=== PATIENT | male | born 1995 | race Caucasian/White ===

== ENCOUNTER 2016-04-29 14:14 | Emergency (ER) | payer OTHER ==
[~2016-04-29] VITALS: Ht 190.5 cm; Wt 73.3 kg
[2016-04-29 14:22] VITALS: TEMP 36.9; Ht 190.5 cm; Wt 73.3 kg
--- NOTE | 2016-04-29 14:40 | EMERGENCY ROOM VISIT NOTE ---
ED Visit Note First contact with patient: 14:29 CHIEF COMPLAINT: Foot pain HISTORY OF PRESENT ILLNESS: This 20-year-old male patient presents to the emergency department ambulatory complaining of swelling and pain in the right foot at rest and worse with weight bearing. The patient states that he was walking on a ledge 2 days ago and twisted his right foot over a stump. The patient rates the pain as sharp and and 8/10. The patient has not taken any medication for relief of the pain. The patient is able to walk, but states it is very painful to do so. No numbness or weakness. No ankle pain. There are no lacerations of the foot. The patient is able to move all of their toes and their ankle. No previous fracture to this foot. REVIEW OF SYSTEMS: GENERAL: A 6 system review of systems was completed with positives and pertinent negatives in the HPI. ALLERGIES: No known drug allergies MEDICATIONS: No chronic medications PMH: No significant past medical history. SOCIAL HISTORY: The patient is a [place] [employer] student and lives with roommates. Nonsmoker, does admit to occasional alcohol use. PHYSICAL EXAM: Vital Signs: Reviewed Nurse's notes, vital signs stable. GENERAL : This is a 20-year-old male, in no acute distress, but appears in pain, well- developed, well-nourished. Musculoskeletal: There is no visual deformity of the right foot. There is no erythema. There is ecchymosis over the area of the fifth metatarsal. There is tenderness and swelling over the lateral aspect of the right foot. There is no tenderness over the lateral or medial malleolus. No tenderness of the tib/fib. Full range of motion of the ankle. Full plantar flexion and dorsiflexion. Strength 5/5. The skin is intact and there are no lacerations or puncture wounds. Dorsalis pedis pulse 2+. Capillary refill less than 2 seconds. RADIOGRAPHIC FINDINGS: RIGHT FOOT MIN 3 VIEWS ROUTINE CLINICAL HISTORY: Right foot injury, ecchymosis 5th metatarsal. COMPARISON: None FINDINGS: There is a comminuted nondisplaced transverse fracture within the base of the right fifth metatarsal with suspected intra-articular extension. Alignment of the tarsometatarsal joints is anatomic. No additional fractures are identified on this examination. Lateral view demonstrates a 4 mm ossific density along the dorsal aspects of the proximal metatarsals appear IMPRESSION: 1. Acute comminuted, nondisplaced transverse fracture of the base of the right fifth metatarsal with suspected intra-articular extension. 2. 4 mm bone fragment along the dorsal aspect of the proximal metatarsals shown on lateral projection. This represents an age indeterminate, but likely old, avulsion injury. EMERGENCY DEPARTMENT COURSE: I examined the patient. An X-ray of the right foot was reviewed by myself and radiology and reveals the above fracture. The patient was placed in an Ortho-Glass posterior short leg splint and instructed on the use of crutches. The patient was given information for orthopedic follow -up. He was given a short course of Costilla for pain. The patient was discharged home in good condition. DIAGNOSIS: Fifth metatarsal fracture Current/Historical Medications Scheduled PRN Hydrocodone/Acetaminophen 5MG/325MG (Costilla 5MG/325MG), 1-2 TABLET PO Q4H PRN for Pain Ibuprofen Tab (Advil), 200 MG PO Q6 PRN for Pain Allergies Coded Allergies: No Known Allergies (Unverified , 04/29/16) Vital Signs Date Time Temp Pulse Resp B/P Pulse Ox O2 Delivery O2 Flow Rate FiO2 04/29/16 15:55 68 18 120/81 97 04/29/16 14:22 36.9 84 18 122/74 94 Room Air Departure Information Impression Primary Impression: Fracture of fifth metatarsal bone Dispostion Home / Self-Care Condition GOOD Prescriptions Hydrocodone/Acetaminophen 5MG/325MG (Costilla 5MG/325MG) Tab 1-2 TABLET PO Q4H Y for Pain, #12 TAB For Initial Treatment Prov: Erinn Ventura, DEBBY 04/29/16 Referrals No Doctor, Assigned (PCP) Vitaliy Hogue MD Patient Instructions ED Splint Care [facility]min [facility] Additional Instructions You have been treated in the Emergency Department for a foot fracture. You have been prescribed Costilla to be used for pain control. This is a narcotic medication. You cannot drive or consume alcohol while on this medicine. This medicine should only be used for pain that cannot be controlled with over-the- counter pain medicines. For pain control, you can use the following [id number] medicines (if >12 yo): - Regular strength (325mg/tab) Tylenol (acetaminophen) 2 tabs every 4-6 hours as needed. Do not exceed 12 tablets in a 24 hour period. Avoid taking more than 4 grams (4000 mg) of Tylenol per day. This includes any other sources of acetaminophen you may take on a regular basis. - Regular strength (200 mg/tab) Advil (ibuprofen) 1-2 tabs every 4-6 hours as needed. Do not exceed a dose of 3200 mg per day. If this is a recent injury (<24 hrs), ice can be applied to the area of pain for the first 3 days to help decrease pain and inflammation. You have been provided the number for an Orthopaedic Surgeon. You should call this number as soon as possible to establish a follow-up visit from today's Emergency Department visit. Keep the splint in place and use the crutches you have been provided to keep ALL weight off of the ankle until cleared by orthopedics. Return to the Emergency Department if your current symptoms worsen despite treatment course outlined above, or if you develop any of the following symptoms : intractable pain despite aforementioned treatment course or new onset of numbness or tingling of the foot. Problem Qualifiers Primary Impression: Fracture of fifth metatarsal bone Encounter type: initial encounter Fracture type: closed Fracture alignment : nondisplaced Laterality: right Qualified Codes: S92.354A - Nondisplaced fracture of fifth metatarsal bone, right foot, initial encounter for closed fracture
[2016-04-29] MEDS ORDERED: IBUP-103 PO (15:03)
--- NOTE | 2016-04-29 15:15 | DIAGNOSTIC IMAGING REPORT ---
RIGHT FOOT MIN 3 VIEWS ROUTINE CLINICAL HISTORY: Right foot injury, ecchymosis 5th metatarsal. COMPARISON: None FINDINGS: There is a comminuted nondisplaced transverse fracture within the base of the right fifth metatarsal with suspected intra-articular extension. Alignment of the tarsometatarsal joints is anatomic. No additional fractures are identified on this examination. Lateral view demonstrates a 4 mm ossific density along the dorsal aspects of the proximal metatarsals appear IMPRESSION: 1. Acute comminuted, nondisplaced transverse fracture of the base of the right fifth metatarsal with suspected intra-articular extension. 2. 4 mm bone fragment along the dorsal aspect of the proximal metatarsals shown on lateral projection. This represents an age indeterminate, but likely old, avulsion injury. Electronically signed by: Alex Roman M.D. 04/29/2016 3:14 PM Dictated Date/Time: 04/29/2016 3:10 PM
[2016-04-29] MEDS ORDERED: HYDR-5688 PO (15:31)
[2016-04-29 15:55] VITALS: BP 120/81; PULSE 68; O2SAT 97
== END 2016-04-29 15:56 | disposition home or self-care (01) ==
LOC: C.EDB 14:15 → C.EDD 15:56
DX: S92.354A Nondisplaced fracture of fifth metatarsal bone, right foot, initial encounter for closed fracture (principal); X50.1XXA Overexertion from prolonged static or awkward postures, initial encounter

== ENCOUNTER 2016-06-26 04:38 | Emergency (ER) | payer OTHER ==
[~2016-06-26] VITALS: Ht 190.5 cm; Wt 73.3 kg
[~2016-06-26 04:38] MED LIST: HYDR-5688 PO; IBUP-103 PO
[2016-06-26 04:43] VITALS: Ht 190.5 cm; Wt 73.3 kg
[2016-06-26] MEDS ORDERED: SODIUM CHLORIDE 0.9% 1000ML 1,000 ML, SODIUM CHLORIDE 0.9% 1000ML 1,000 ML IV ONE (05:00)
[2016-06-26] MEDS ORDERED: ONDANSETRON INJ 2 MG/ML 2 ML VIAL IV STA ×2 (05:02→06:19)
[2016-06-26 05:11] LABS: BASO % 0.1 %; BASO ABS # 0.02 K/uL (0-0.2); COMPLETE YES; EOS % 0.1 %; HEMATOCRIT 45.6 % (42-52); IG% 0.3 %; LYMPH % 2.3 %; LYMPH ABS # 0.31 K/uL (1.2-3.4); MEAN CELL VOLUME 89.2 fL (80-100); MEAN CORPUSCULAR HEMOGLOBIN 31.7 pg (25-34); MEAN CORPUSCULAR HGB CONC 35.5 g/dl (32-36); MEAN PLATELET VOLUME 9.2 fL (7.4-10.4); MONO % 5.9 %; NEUT % 91.3 %; PLATELET COUNT 269 K/uL (130-400); RED BLOOD COUNT 5.11 M/uL (4.7-6.1); WHITE BLOOD COUNT 13.65 K/uL (4.8-10.8)
[2016-06-26 05:25] LABS: URINE APPEARANCE CLEAR (CLEAR); URINE BILIRUBIN NEG (NEG); URINE COLOR DK YELLOW; URINE NITRITE NEG (NEG); URINE PH >= 9.0 (4.5-7.5); UROBILINOGEN NEG (NEG); ZZUR CULT IF INDIC CLEAN CATCH NO
[2016-06-26 05:26] LABS: BUN/CREATININE RATIO 14.2 (10-20); CALCIUM 9.3 mg/dl (8.5-10.1); CREATININE 1.1 mg/dl (0.60-1.40); POTASSIUM 4.4 mmol/L (3.5-5.1)
[2016-06-26 05:29] LABS: ALB/GLOB RATIO 1.3 (0.9-2)
[2016-06-26 05:35] LABS: MANUAL MICROSCOPIC REQUIRED? NO; REVIEW REQ? NO
[2016-06-26 05:55] LABS: SULFASALICYLIC ACID NEG (NEG)
[2016-06-26] MEDS ORDERED: ONDA4TAB10 SL (06:48)
[2016-06-26 08:15] VITALS: BP 98/53; PULSE 90; TEMP 37; O2SAT 100
--- NOTE | 2016-06-26 22:29 | EMERGENCY ROOM VISIT NOTE ---
History First contact with patient: 04:51 Chief Complaint: VOMITING Stated Complaint: FOOD POISING?,VOMITING,DEHYDRATION Nursing Triage Summary: n/v/d since 2030 last evening. Pt stated he is unable to keep anything down including water. History of Present Illness The patient is a 20 year old male who presents to the Emergency Room with complaints of nausea, vomiting, and diarrhea for the past 6 hours. The patient states that he was feeling well throughout the day and was eating and drinking as normal. When he got home he began with his symptoms. He does not have recent travel history or recent antibiotic use. No known exposure to disease. The patient feels dehydrated and states that he may have food poisoning. He has some abdominal cramping but no distinct pain. No chest pain or shortness of breath. He rates his discomfort a 7/10. Review of Systems More than 10 systems were reviewed and otherwise negative with the exception of history of present illness. Past Medical/Surgical History No chronic medical disease Family History No pertinent family history Social History Smoking Status: Never Smoker Alcohol Use: occasionally Drug Use: none Marital Status: single Housing Status: lives with roommate Occupation Status: [employer] student Current/Historical Medications Scheduled Ondasetron Odt (Zofran Odt), 4 MG SL Q6H Scheduled PRN Ibuprofen Tab (Advil), 200 MG PO Q6 PRN for Pain Allergies Coded Allergies: No Known Allergies (Unverified , 06/26/16) Physical Exam Vital Signs Date Time Temp Pulse Resp B/P Pulse Ox O2 Delivery O2 Flow Rate FiO2 06/26/16 08:15 37.0 90 16 98/53 100 06/26/16 06:56 37.0 92 103/48 100 Room Air 06/26/16 04:43 36.8 105 18 99/58 97 Room Air Pain Rating (0-10): 0 Physical Exam VITALS: Vitals are noted on the nurse's note and reviewed by myself. Vital signs stable. GENERAL: Well-developed, well-nourished, white male, who is in no acute distress and resting comfortably. Patient is cooperative with the examination. HEAD: Normocephalic atraumatic. MOUTH: Mucous membranes dry. Tonsils are not enlarged. Pharynx without erythema, blood, or exudate. Uvula midline. Airway patent. NECK: Supple without nuchal rigidity. No lymphadenopathy. No thyromegaly. Cervical spine is nontender. HEART: Regular rate and rhythm without murmurs gallops or rubs. LUNGS: Clear to auscultation bilaterally without wheezes, rales or rhonchi. No retractions or accessory muscle use. ABDOMEN: Positive normal bowel sounds x 4. Soft, nontender, without masses or organomegaly. No guarding or rebound tenderness. MUSCULOSKELETAL: No muscle atrophy, erythema, or edema noted. Full range of motion without joint tenderness in all extremities. NEURO: Patient was alert and oriented to person place and time. CN II through XII grossly intact. SKIN: The skin was without rashes, erythema, edema, or bruising. Capillary reflex less than 2 seconds. No tenting. Medical Decision & Procedures Laboratory Results 06/26/16 04:00 Red Blood Count 5.11, Mean Corpuscular Volume 89.2, Mean Corpuscular Hemoglobin 31.7, Mean Corpuscular Hemoglobin Concent 35.5, Mean Platelet Volume 9.2, Neutrophils (%) (Auto) 91.3, Lymphocytes (%) (Auto) 2.3, Monocytes (%) (Auto) 5.9, Eosinophils (%) (Auto) 0.1, Basophils (%) (Auto) 0.1, Neutrophils # (Auto) 12.46, Lymphocytes # (Auto) 0.31, Monocytes # (Auto) 0.80, Eosinophils # (Auto) 0.02, Basophils # (Auto) 0.02 06/26/16 04:00 Test 06/26/16 04:00 06/26/16 05:12 White Blood Count 13.65 K/uL (4.8-10.8) Red Blood Count 5.11 M/uL (4.7-6.1) Hemoglobin 16.2 g/dL (14.0-18.0) Hematocrit 45.6 % (42-52) Mean Corpuscular Volume 89.2 fL (80-100) Mean Corpuscular Hemoglobin 31.7 pg (25-34) Mean Corpuscular Hemoglobin Concent 35.5 g/dl (32-36) Platelet Count 269 K/uL (130-400) Mean Platelet Volume 9.2 fL (7.4-10.4) Neutrophils (%) (Auto) 91.3 % Lymphocytes (%) (Auto) 2.3 % Monocytes (%) (Auto) 5.9 % Eosinophils (%) (Auto) 0.1 % Basophils (%) (Auto) 0.1 % Neutrophils # (Auto) 12.46 K/uL (1.4-6.5) Lymphocytes # (Auto) 0.31 K/uL (1.2-3.4) Monocytes # (Auto) 0.80 K/uL (0.11-0.59) Eosinophils # (Auto) 0.02 K/uL (0-0.5) Basophils # (Auto) 0.02 K/uL (0-0.2) RDW Standard Deviation 39.2 fL (36.4-46.3) RDW Coefficient of Variation 12.1 % (11.5-14.5) Immature Granulocyte % (Auto) 0.3 % Immature Granulocyte # (Auto) 0.04 K/uL (0.00-0.02) Anion Gap 7.0 mmol/L (3-11) Est Creatinine Clear Calc Drug Dose 112.0 ml/min Estimated GFR () 112.2 Estimated GFR (Non- 96.8 BUN/Creatinine Ratio 14.2 (10-20) Calcium Level 9.3 mg/dl (8.5-10.1) Total Bilirubin 1.1 mg/dl (0.2-1) Aspartate Amino Transf (AST/SGOT) 5 U/L (15-37) Alanine Aminotransferase (ALT/SGPT) 22 U/L (12-78) Alkaline Phosphatase 85 U/L (45-117) Total Protein 8.2 gm/dl (6.4-8.2) Albumin 4.7 gm/dl (3.4-5.0) Globulin 3.5 gm/dl (2.5-4.0) Albumin/Globulin Ratio 1.3 (0.9-2) Lipase 77 U/L (73-393) Urine Color DK YELLOW Urine Appearance CLEAR (CLEAR) Urine pH >= 9.0 (4.5-7.5) Urine Specific [place] 1.030 (1.000-1.030) Urine Protein NEG (NEG) Urine Glucose (UA) NEG (NEG) Urine Ketones 2+ (NEG) Urine Occult Blood NEG (NEG) Urine Nitrite NEG (NEG) Urine Bilirubin NEG (NEG) Urine Urobilinogen NEG (NEG) Urine Leukocyte Esterase TRACE (NEG) Urine WBC (Auto) 1-5 /hpf (0-5) Urine RBC (Auto) 0-4 /hpf (0-4) Urine Hyaline Casts (Auto) 1-5 /lpf (0-5) Urine Epithelial Cells (Auto) 5-10 /lpf (0-5) Urine Bacteria (Auto) NEG (NEG) Medications Administered Medications (Trade) Dose Ordered Sig/Deb Route Start Time Stop Time Status Last Admin Dose Admin Sodium Chloride/ Sodium Chloride (Nss 1000ml/Nss 1000ml) 2,000 ml @ 999 mls/hr Q2H1M ONCE IV 06/26/16 05:00 06/26/16 07:00 DC 06/26/16 05:09 999 MLS/HR Ondansetron HCl (Zofran Inj) 4 mg NOW STAT IV 06/26/16 05:02 06/26/16 05:03 DC 06/26/16 05:09 4 MG Ondansetron HCl (Zofran Inj) 4 mg NOW STAT IV 06/26/16 06:19 06/26/16 06:20 DC 06/26/16 06:24 4 MG ED Course Physical exam and history were performed. Nursing notes and EMR were reviewed. Patient appears to have nausea, vomiting, and diarrhea symptoms for the past several hours. He does appear mildly dehydrated on exam. IV access was established and labs were obtained. The patient was given 2 L normal saline and 8 mg IV Zofran. Patient's blood work is as above and was reviewed. He does have a slightly elevated white blood cell count, which is felt to be from his vomiting. He does not have a significant electrolyte imbalance. His other labs are nondiagnostic. The patient was reevaluated multiple times with course of his stay. He did have significant improvement of his symptoms after hydration. The patient's symptoms are felt to be food borne or viral in etiology and should improve over the next few days. He certainly does not have symptoms consistent with an acute surgical abdomen. The patient will be given a short course of Zofran for home use. I will give him a note for class. He is to follow with [facility] with any ongoing or persistent symptoms. He was otherwise invited back to the ER with any new, worsening, or concerning symptoms. The chart was completed utilizing [employer] Voice Recognition Software. Grammatical errors, random word insertions, pronoun errors, and incomplete sentences are an occasional consequence of this system due to software limitations, ambient noise, and hardware issues. Any formal questions or concerns about the content, text, or information contained within the body of this dictation should be directly addressed to the provider for clarification. . Medical Decision Differential diagnosis: Etiologies such as gastroenteritis, food borne illness, infections, appendicitis , diverticulitis, inflammatory bowel disease, obstruction, GI bleed, biliary pathology, as well as others were entertained. Impression Primary Impression: Nausea and vomiting Departure Information Dispostion Home / Self-Care Condition GOOD Prescriptions Ondasetron Odt (ZOFRAN ODT) 4 Mg Tab 4 MG SL Q6H for Nausea, #12 TAB Prov: Marquez Tucker PA-C 06/26/16 Forms HOME CARE DOCUMENTATION FORM, School Instructions, Additional Instructions: Patient was seen and evaluated today in the emergency department fo medical care. Return to class on 06/28/2016. Please excuse. IMPORTANT VISIT INFORMATION Patient Instructions [facility] Additional Instructions You were seen and evaluated today on an emergency basis only. This is not a substitute for, or an effort to provide, complete comprehensive medical care. It is not possible to recognize and treat all injuries or illnesses in a single emergency department visit. For this reason it is recommended that you followup with [facility] this week for ongoing care and evaluation. Drink plenty of fluids and remain well hydrated. Zofran 1 tablet every 6 hrs as needed for nausea. You are welcome to return to the emergency department anytime with new, worsening, or concerning symptoms. School Instructions Additional School Instructions: Patient was seen and evaluated today in the emergency department for medical care. Return to class on 06/28/2016. Please excuse.
== END 2016-06-26 08:16 | disposition home or self-care (01) ==
LOC: C.EDB 04:39 → C.EDA 08:16
DX: R11.2 Nausea with vomiting, unspecified (principal); R19.7 Diarrhea, unspecified; E86.0 Dehydration